=== PATIENT | female | born 1985 | race Asian ===

== ENCOUNTER → 2018-03-04 | Outpatient (CLI) | payer BC | LOC: COL.RAD 12:08 | DX: E23.7 Disorder of pituitary gland, unspecified (principal); E22.1 Hyperprolactinemia | CPT/HCPCS: A9585 ==

== ENCOUNTER → 2019-11-01 | Outpatient (CLI) | payer BC ==
[~2019-11-01] MED LIST: MOTRIN 600600 MG/TAB PO
== END ==
LOC: DIA.ED 13:30
DX: O24.419 Gestational diabetes mellitus in pregnancy, unspecified control (principal)
CPT/HCPCS: G0108

== ENCOUNTER → 2019-11-22 | Outpatient (CLI) | payer BC | LOC: DIA.ED 11:00 | DX: O24.419 Gestational diabetes mellitus in pregnancy, unspecified control (principal) | CPT/HCPCS: G0108 ==

== ENCOUNTER 2019-12-19 01:30 | Inpatient (IN) | payer BC ==
[2019-12-19] VITALS (55 sets, daily range): BP systolic 94–176; BP diastolic 60–98; PULSE 58–127; TEMP 97.4–98.2
--- NOTE | 2019-12-19 02:03 | NUR ---
LABOR CHECK HERE WITH SPOUSE
[2019-12-19 03:32] LABS: BASO # 0.1 (0.0-0.2); BASO % 0.4 % (0.0-2.0); EOS # 0.1 (0.0-0.7); EOS % 0.4 % (0-4.0); GRAN # 8.3 (1.4-6.5); GRAN % 71.2 % (42.2-75.2); HEMOGLOBIN 11.8 g/dl (12.5-16.0); LYMPH # 2.4 (1.2-3.4); LYMPH % 20.3 % (20.0-51.0); MEAN CELL VOLUME 78 fl (80.0-100.0); MEAN CORPUSCULAR HEMOGLOBIN 26 pg (27.0-31.0); MEAN CORPUSCULAR HGB CONC 33 g/dl (33.0-37.0); MONO # 0.8 (0.1-0.6); MONO % 6.9 % (1.7-9.3); PLATELET COUNT 299 K/mm3 (130-400); RED BLOOD COUNT 4.63 M/mm3 (4.10-5.30); REDCELL DISTRIBUTION WIDTH-CV 13.3 % (11.5-14.5)
[2019-12-19 03:33] LABS: HEMATOCRIT 36.3 % (37.0-47.0)
--- NOTE | 2019-12-19 09:22 | NUR ---
Difficulty tracing FHR due to maternal postion. RN at bedside adjusting monitors for replacement epidural. FHR audible.
--- NOTE | 2019-12-19 11:20 | NUR ---
Pt sitting at EOB for epidural replacement. RN at bedside adjusting monitors. FHR aubible.
--- NOTE | 2019-12-19 16:12 | NUR ---
Dr. Carroll at bedside. Discusses VAVD. Pt request VAVD. Vacuum applied. Pt begins pushing wtih provider. 1615-VAVD attended by Dr. Carroll. Infant dried and placed on mothers abdomen. Cord clamped x2 and cut from umbilicus. Care of infant to Denia Friedman RN 1617- of placenta. Fundus firm. At umbilicus. Pitocin bolus infusing per protocol. Second degree laceration and vaginal wall laceration repair performed by provider. Pericare performed. Ice pack applied. Pt updated on POC. Safety reviewed. Bed locked in low postion. Call light within reach. No questions or concerns at this time.
[2019-12-20 00:15] VITALS: BP 122/66; PULSE 93; TEMP 98.9
[2019-12-20 07:23] LABS: BASO # 0.1 (0.0-0.2); BASO % 0.4 % (0.0-2.0); EOS % 0.1 % (0-4.0); GRAN # 10.3 (1.4-6.5); LYMPH # 2.2 (1.2-3.4); LYMPH % 16.5 % (20.0-51.0); MEAN CELL VOLUME 79 fl (80.0-100.0); MEAN CORPUSCULAR HGB CONC 32 g/dl (33.0-37.0); MEAN PLATELET VOLUME 11.3 fl (7.4-10.4); MONO # 0.9 (0.1-0.6); MONO % 6.3 % (1.7-9.3); PLATELET COUNT 231 K/mm3 (130-400); RED BLOOD COUNT 3.65 M/mm3 (4.10-5.30); REDCELL DISTRIBUTION WIDTH-CV 13.3 % (11.5-14.5)
[2019-12-20 07:29] LABS: HEMATOCRIT 28.7 % (37.0-47.0); HEMOGLOBIN 9.3 g/dl (12.5-16.0); MEAN CORPUSCULAR HEMOGLOBIN 25 pg (27.0-31.0)
[2019-12-20 07:35] VITALS: BP 119/74; PULSE 79; TEMP 98
[2019-12-20 12:30] VITALS: BP 128/81; PULSE 91; TEMP 97.8
[2019-12-20 17:25] VITALS: BP 112/65; PULSE 81; TEMP 98.2
[2019-12-20 21:00] VITALS: BP 103/58; PULSE 87; TEMP 98.3
[2019-12-21 07:45] VITALS: BP 122/75; PULSE 77; TEMP 98.1
[2019-12-21] MEDS ORDERED: MOTRIN 600600 MG/TAB PO (08:49)
== END 2019-12-21 13:40 | disposition home or self-care (01) | DRG 807 ==
LOC: LDRO 01:30 → LDR 01:30 → LDRO 03:03 → LDR 03:04 → OB 20:00
PROVIDERS: Obstetrics & Gynecology; ADMIT Obstetrics & Gynecology
PROC: 10907ZC Drainage of Amniotic Fluid, Therapeutic from Products of Conception, Via Natural or Artificial Opening (ICD-10-PCS; principal; 2019-12-19)
PROC: 10D07Z6 Extraction of Products of Conception, Vacuum, Via Natural or Artificial Opening (ICD-10-PCS; 2019-12-19)
PROC: 0KQM0ZZ Repair Perineum Muscle, Open Approach (ICD-10-PCS; 2019-12-19)
PROC: 10907ZC Drainage of Amniotic Fluid, Therapeutic from Products of Conception, Via Natural or Artificial Opening (ICD-10-PCS; 2019-12-19)
DX: O24.420 Gestational diabetes mellitus in childbirth, diet controlled (principal); Z37.0 Single live birth; O75.81 Maternal exhaustion complicating labor and delivery; O99.214 Obesity complicating childbirth; E66.9 Obesity, unspecified; O70.1 Second degree perineal laceration during delivery; Z3A.39 39 weeks gestation of pregnancy
CPT/HCPCS: J2590; J2795; J7120

== ENCOUNTER → 2020-02-07 | Outpatient (CLI) | payer BC ==
--- NOTE | 2020-02-07 15:23 | NUR ---
Pt, Ana Wallace, presents for outpatient consult with 7 week old baby boy, Wallace Hernandez and her spouse Edi Hernandez. They were referred by Dr. Rebollar as Wallace wakes every 2-3 hours a noc for feedings, and he has long feedings. Pt is concerned about this sleep behaviour and with returning to work, wants to make sure baby is eating properly and how to manage night feedings. Wallace was born on [birth year] and weighed 8#3.2oz (3720 gms). Today his weight is 11#11.6oz. While nursing here, LC points out when Wallace starts to loose interest in feeding as noted with pulling at the breast, frequently relatching himself and trying to see other things in the room. After Wallace has a weight gain of 2.4oz (68 gms). Pt reports yesterday she started trying to wake Wallace every 2 hours in the daytime to feed in order to get him to sleep longer at night. Last night she last breastfeeds him ~2100. Wallace then got bottle fed, by his father, 4oz of formula around midnight and 0400. He returned to around 0800 this morning and she is following the 2 hour feeding plan. LC has discussion about what the family desires/needs are in relationship to pt getting enough sleep to return to work, and the baby getting as much breastmilk as possible. Supply and demand of breastmilk reviewed so they could consider the impact of sleeping through the noc on milk volume. Also discussed developmental stages that they should monitor as baby likely needing more interactions than sleeping after every . Pt assisted on use of breastpump, advised to use larger nguyen to get better milk transfer. Also suggested pumping after the first morning feeding if baby is not nursing from breast to collect the extra build up and hopefully keep milk volume up as much as possible. POC: Review books advised by Dr. Rebollar and this LC, work on pumping to collect extra milk in the mornings, continue . Look for parent education materials, perhaps [employer], to help them determine what their parenting styles will be. F/U: As scheduled with Dr. Rebollar, this LC as needed.
== END ==
LOC: LAC 14:06
DX: Z39.1 Encounter for care and examination of lactating mother (principal); Z71.89 Other specified counseling

== ENCOUNTER → 2020-04-02 | Outpatient (CLI) | payer BC ==
--- NOTE | 2020-04-02 15:31 | NUR ---
Pt, Ana Wallace, presents for outpatient consult with 3.5 month old baby boy, Wallace Hernandez, and her spouse Edi Hernandez. They were seen by this LC on 02/07/20 with concerns of frequent noc feedings and long feedings. Wallace was born on [birth year] and weighed 8#3.2oz (3720 gms). At the consult in January he weighed 11#11.6oz (5318 gms). Pt reports Wallace weighed 13.1oz at his [address] Rebollar on 02/20/20. Pt changed feedings to all on demand, with no more pumping or supplementing with formula 2.5 weeks ago. Pt reports Wallace was highly gassy and screaming with pain so elected to discontinue formula. Over the last 2.5 weeks she feels Wallace is having very short and distracted feedings. He makes whining noises and pulls from the breast frequently. Today Wallace weighs 15#5.2oz (6950 gms), for an average of 6 oz per week from his last appt with Dr. Rebollar. Pt has tried weighing him at home with luggage scale and were concerned he had lost weight. After , very distractedly and for a short time frame, Wallace had a weight gain of 2oz. Pt states he did eat 1.5 hours prior to this appointment. He was content while LC made feedings plans with pt. Diet and fluid intake reviewed as well as pumping after to try to get a better feel for milk volume based on milk left behind at short feedings and to help increase milk production. Pt will start herbal supplements as well and resume power pumping. Because Hector weight was WNL, they were not advised to supplement unless he is not content. The family reports he still sleeps pretty good, with two four hour stretches at [place] [place]. His weight will be monitored more closely. POC: Breastfeed on demand, monitor supply with post-feeding pumping, suppelment if needed based on behavior, and diet as noted above. F/U: with this LC on WednesdayApril 12 @ 1400. Questions invited and answered.
== END ==
LOC: LAC 13:48
DX: Z39.1 Encounter for care and examination of lactating mother (principal); Z71.89 Other specified counseling

== ENCOUNTER → 2020-04-12 | Outpatient (CLI) | payer BC ==
--- NOTE | 2020-04-12 14:46 | NUR ---
Pt, Ana Wallace, presents for follow up consult with 3.75 month old baby boy, Wallace Hernandez, and her spouse. They were seen 10 days ago for concerns about Wallace's weight. Wallace was born on [birth year] and weighed 8#3.2oz (3719 gms). Pt had discontinued the formula supplement a few weeks earlier because he seemed to have increased gassinenes and screaming in pain. This caused a concern about his weight. On 04/02/20 Wallace weighed 15#5.2oz (6950 gms). He drank 2 oz from the breast at that feeding. Pt has power pumped for a week, has improved her dietary intake and attempted to use herbal supplements but found they upset Wallace's stomach so discontinued them. Today Wallace weighs 15#12.2oz for a gain of 7oz over the last 10 days. After Wallace has a weight gain of 3.2oz. His feeding is not as distracted as last time. Pt pumps after feeding, collecting ~0.5oz. POC: Pt will continue on demand, use formula supplement prn if Wallace does not seem content. They will look for sensetive stomach version of formula. She will continue power pumping for 3 day intervals. F/U: Wallace has his [address] Rebollar on 04/26/20. Pt will report weight to this to discuss growth and Dr. Rebollar's input. Questions invited and answered.
== END ==
LOC: LAC 08:48
DX: Z39.1 Encounter for care and examination of lactating mother (principal); Z71.89 Other specified counseling

== ENCOUNTER 2023-08-31 08:39 | Outpatient (CLI) | payer BC ==
[~2023-08-31] VITALS: Ht 154.9 cm; Wt 106.4 kg
--- NOTE | 2023-08-31 08:46 | NUR ---
PT AMBULATORY TO UNIT WITH SPOUSE. REPORTS CTX Q5 MINUTES. MODERATELY PAINFUL. PT NOT VISABLY UNCOMFORTABLE. REPORTS FEELING BABY MOVE, NO LEAKING OF FLUID, NO BLEEDING. SVE AT THIS TIME PER MOHSEN ODELL, 3-/-3.
[2023-08-31] MEDS ORDERED: ALKA-SELTZER HE1 TEF PO (08:50)
[2023-08-31] MEDS ORDERED: PRENATAL TABLET PO (08:50)
[2023-08-31] MEDS ORDERED: IRON CHEWS15 MG PO (08:59)
[2023-08-31 09:15] VITALS: BP 127/77; PULSE 99
[2023-08-31 09:45] VITALS: BP 131/76; PULSE 81
--- NOTE | 2023-08-31 09:45 | NUR ---
SVE UNCHANGED AT THIS TIME.
== END 2023-08-31 09:50 | disposition home or self-care (01) ==
LOC: LDRO 08:39
DX: O09.519 Supervision of elderly primigravida, unspecified trimester (principal); Z3A.00 Weeks of gestation of pregnancy not specified

== ENCOUNTER 2023-09-06 06:57 | Inpatient (IN) | payer BC ==
[2023-09-06] VITALS (15 sets, daily range): BP systolic 105–146; BP diastolic 58–90; PULSE 67–129; TEMP 97.7–98.9
[~2023-09-06] VITALS: Ht 154.9 cm; Wt 106.4 kg
[~2023-09-06 06:57] MED LIST changes: +ALKA-SELTZER HE1 TEF PO; +IRON CHEWS15 MG PO; +PRENATAL TABLET PO
--- NOTE | 2023-09-06 07:10 | NUR ---
PT AMBULATORY TO UNIT WITH SPOUSE. REPORTS CTX AND LOF THAT STARTED AT 0600. SVE /-2. SROM CONFIRMED. REPORTS POSITIVE MOVEMENT, NO BLEEDING, CTX Q5MIN. WILL NOTIFY DRFatou PT REQUESTS EPIDURAL.
[2023-09-06] MEDS ORDERED: LR & Oxytocin 500 ML IV SCH (07:30)
[2023-09-06] MEDS ORDERED: LR 1,000 ML IV SCH (07:30)
[2023-09-06 07:54] LABS: BASO % 0.3 % (0.0-2.0); EOS # 0.1 K/mm3 (0.0-0.7); EOS % 0.8 % (0.0-4.0); GRAN # 7.5 K/mm3 (1.4-6.5); GRAN % 62.9 % (42.2-75.2); HEMOGLOBIN 10.9 g/dl (12.5-16.0); LYMPH # 3.2 K/mm3 (1.2-3.4); LYMPH % 26.9 % (20.0-51.0); MEAN CELL VOLUME 78 fl (80.0-100.0); MEAN CORPUSCULAR HEMOGLOBIN 24 pg (27-31); MEAN CORPUSCULAR HGB CONC 31 g/dl (33.0-37.0); MEAN PLATELET VOLUME 10.9 fl (7.4-10.4); MONO # 0.9 K/mm3 (0.1-0.6); MONO % 7.7 % (1.7-9.3); PLATELET COUNT 346 K/mm3 (130-400); RED BLOOD COUNT 4.47 M/mm3 (4.10-5.30); REDCELL DISTRIBUTION WIDTH-CV 14.7 % (11.5-14.5)
[2023-09-06] MEDS ORDERED: Chloroprocaine PF 3% (30 MG/ML) 20 ML VIAL ONE (07:59)
--- NOTE | 2023-09-06 08:04 | NUR ---
0800 PEG WEISS AT BEDSIDE FOR EPIDURAL PLACEMENT. PT SITTING UPRIGHT ON EDGE OF BED. PULSE OX IN PLACE, BOLUS COMPLETE. 0804 SINGLE SHOT ADMINISTERED PER PEG WEISS. PT TOLERATED WELL. 0806 PT REPORTS FEELING URGE TO PUSH. PT SUPINE AT THIS TIME, DR. MINER AT BEDSIDE FOR SVE- AL/90/0.
--- NOTE | 2023-09-06 08:04 | NUR ---
DIFFICULTY TRACING EFM DUE TO MATERNAL HABITUS. VS STABLE.
[2023-09-06 08:11] LABS: HEMATOCRIT 34.7 % (37.0-47.0)
[2023-09-06] MEDS ORDERED: diphenhydrAMINE 25 MG CAP PO PRN (08:15)
[2023-09-06] MEDS ORDERED: ePHEDrine 50 MG/10 ML VIAL IV PRN (08:15)
[2023-09-06] MEDS ORDERED: diphenhydrAMINE 50 MG/ML 1 ML VIAL IV PRN (08:15)
[2023-09-06] MEDS ORDERED: Ondansetron 4 MG/2 ML VIAL IV PRN (08:15)
[2023-09-06] MEDS ORDERED: Naloxone 0.4 MG/ML VIAL IV PRN ×2 (08:15→10:00)
--- NOTE | 2023-09-06 08:30 | NUR ---
0830 PT FEELING PRESSURE. SVE 10/100/0 AT THIS TIME. BEGAN PUSHING. DR. ESCOTO NOTIFIED. 0852 DR. ESCOTO IN ROOM TO ATTEMPT VACUUM D/T HEART TONES. VACUUM PLACED, PT PUSHED AND VACUUMED PULLED INTO GREEN ZONE FOR 9 CONTRACTIONS. VACUUM POPPED OFF. VACUUM PLACED BACK ON FOR 2 MORE CONTRACTIONS, VACUUM POPPED OFF. PT PUSHED 3 TIMES W/O VACUUM, NEW VACUUM PLACED BACK ON, PUMPED TO GREEN ZONE, 2 PULLS, [address] MALE PER DR. ESCOTO. PLACED ON MATERNAL ABDOMEN AND CARE ASSUMED BY NURSERY RN. [address] ESCOTO. PT TOLERATED FAIR. PITOCIN BOLUS INFUSING PER PROTOCOL. FUNDUS FIRM, AT U. DR. ESCOTO REPAIRED 2ND DEGREE LACERATION. VS STABLE. ROOM PUT BACK TOGETHER. MONTEZ DOLAN.
[2023-09-06] MEDS ORDERED: Measles/Mumps/Rubella Virus Vaccine Live w Diluent 0.5 ML VIAL SQ SCH (10:00)
[2023-09-06] MEDS ORDERED: Loratadine 10 MG TAB PO PRN (10:00)
[2023-09-06] MEDS ORDERED: Phenylephrine/Mineral Oil/Petrolatum 57 GM TUBE RC PRN (10:00)
[2023-09-06] MEDS ORDERED: Ibuprofen 800 MG TAB PO SCH (10:00)
[2023-09-06] MEDS ORDERED: Magnes Hydrox (MOM) 80 MG/ML 30 ML CUP PO PRN (10:00)
[2023-09-06] MEDS ORDERED: Mag/Al Hydrox/Simeth Susp 30 ML CUP PO PRN (10:00)
[2023-09-06] MEDS ORDERED: oxyCODONE 5 MG TAB PO PRN (10:00)
[2023-09-06] MEDS ORDERED: Witch Hazel 50% Pads Bulk TUB TP PRN (10:00)
[2023-09-06] MEDS ORDERED: Acetaminophen 500 MG TAB PO SCH (10:00)
[2023-09-06] MEDS ORDERED: Sennosides/Docusate 8.6-50 MG TAB PO SCH (17:00)
--- NOTE | 2023-09-06 18:02 | NUR ---
1400 REPORT RECIEVED FROM OLESYA CONNOLLY AND THIS NURSE ASSUMING CARRE OF PT
[2023-09-06] MEDS ORDERED: traZODone 50 MG TAB PO PRN (21:00)
[2023-09-07] VITALS: BP 130/68; PULSE 81; TEMP 98.1
[2023-09-07 04:00] VITALS: BP 128/59; PULSE 72; TEMP 98.6
[2023-09-07 07:00] VITALS: BP 136/74; PULSE 78; TEMP 98
[2023-09-07] MEDS ORDERED: MOTRIN 800800 MG/TAB PO (08:33)
--- NOTE | 2023-09-07 09:14 | NUR ---
Initial visit; Patient thanked [facility] for offering congratulations and Blessings for the of her son. [facility]ctor thanked new mom for choosing [facility].
[2023-09-07 17:00] VITALS: BP 105/56; PULSE 76; TEMP 98
[2023-09-07 21:00] VITALS: BP 140/67; PULSE 88; TEMP 98.9
[2023-09-08 03:00] VITALS: BP 132/68; PULSE 79; TEMP 98.8
[2023-09-08 08:15] VITALS: BP 128/64; PULSE 94; TEMP 98.1
== END 2023-09-08 12:05 | disposition home or self-care (01) | DRG 807 ==
LOC: LDRO 06:57 → LDR 07:19 → OB 12:26
PROVIDERS: ADMIT Obstetrics & Gynecology
PROC: 10D07Z6 Extraction of Products of Conception, Vacuum, Via Natural or Artificial Opening (ICD-10-PCS; principal; 2023-09-06)
PROC: 0KQM0ZZ Repair Perineum Muscle, Open Approach (ICD-10-PCS; 2023-09-06)
DX: O24.420 Gestational diabetes mellitus in childbirth, diet controlled (principal); Z37.0 Single live birth; Z3A.39 39 weeks gestation of pregnancy; O99.214 Obesity complicating childbirth; E55.9 Vitamin D deficiency, unspecified; O99.284 Endocrine, nutritional and metabolic diseases complicating childbirth; D35.2 Benign neoplasm of pituitary gland; O76 Abnormality in fetal heart rate and rhythm complicating labor and delivery; O70.1 Second degree perineal laceration during delivery; O99.892 Other specified diseases and conditions complicating childbirth
CPT/HCPCS: J2401; J2590; J7120